=== PATIENT | male | born 1955 | race Caucasian/White ===

== ENCOUNTER 2020-07-22 11:00 | Outpatient (RCR) | payer MEDICARE, BC, SELFPAY ==
--- NOTE | 2020-07-06 12:08 | HMH.OTOPEV ---
OT Inpatient Evaluation Rehab OT Outpatient Eval Start: 07/06/20 10:34 Freq: Status: Active Protocol: Document 07/06/20 10:37 GELYRACHEL (Rec: 07/06/20 11:09 VICTORIANO [id number]) Electronically Signed By Page Luu OT 07/06/20 10:37 Outpatient Therapy Subjective History Subjective History 65 year old male referred to OP OT skilled services after having R elbow pain for past year. Patient verbalize wearing lateral epicondyle brace for the past 6 days with no relief noted. Chief Complaint Pain Symptom Type Ache Symptoms Aggravated By Physical Activity,Lifting Prior Functional Limitations None Current Functional Limitations Reaching,Lifting,Recreation Activity Symptom Description Constant and Continuous Level of pain today (0-10) 5 Pain scale - at its best (0-10) 5 Pain scale - at its worst (0-10) 6 Shoulder/Elbow Eval Shoulder Objective Measurements Elbow Objective Measurements Elbow ROM Right full ROM elbow exam standard right Elbow Extension Active Range of Motion ( 0 degrees) Elbow Flexion Active Range of Motion ( 150 degrees) Elbow Pronation of Forearm Range of 90 Motion (degrees) Elbow Supination of Forearm Range of 90 Motion (degrees) Elbow MMT Elbow Flexion Strength Grade 3+ Fair+ Brachialis Strength Grade (Flexion) 3+ Fair+ Elbow Special Tests Resistive Tennis Elbow (Cozen's) Test Positive Right Medial Epicondylitis Test Positive Right OT Outpatient Assessment Impairments Problems/Impairments Palpation Tenderness,Impaired Strength,Subjective C/O Pain, Impaired Self Care/Self Management Prognosis Rehab Potential Good Clinical Impression Consistent with Diagnosis Yes Short Term Goals Number of Weeks 2 Increase Strength Yes: Improve R elbow strength 3+ to 4-/5 throughout Increase Endurance Yes: Increase endurance to 20 mins of exer prior to RB Decrease Subjective C/O Pain Yes Patient to be Ind w/ HEP Yes: AAROM Patient to be Ind w/ Advanced HEP Yes: Strengthening Mcfp Goals Number of Weeks 4 Increase Strength Yes: Increase R elbow strength 4 to 4+/5 Increase Endurance Yes: Increase endurance to 30 mins of exer prior to RB Decrease Subjective C/O Pain Yes: 01/09 a
== END 2020-07-22 11:05 | disposition home or self-care (01) ==
LOC: OT 11:00
PROVIDERS: PCP Internal Medicine Adolescent Medicine; Visit Provider Internal Medicine Adolescent Medicine
DX: M25.512 Pain in left shoulder (principal)
CPT/HCPCS: 97014; 97035; 97110; 97140; 97165; G0283

== ENCOUNTER → 2020-07-30 09:49 | Outpatient (CLI) | payer MEDICARE, BC, SELFPAY ==
--- NOTE | 2020-07-30 09:51 | MR_ITS ---
PROCEDURE: MR ELBOW RT WO CON CLINICAL INDICATION: RIGHT ELBOW PAIN RIGHT POSTERIOR ELBOW PAIN, PT STATES HE HAS GOLFERS ELBOW. SYMPTOMS X10 MONTHS. PT HAS BEEN IN THERAPY FOR ELBOW PAIN COMPARISON: No exams were available for comparison TECHNIQUE: Routine multiplanar multi echo sequences are performed without gadolinium enhancement. FINDINGS: There are no previous exams available for comparison. There are diffuse osteoarthritic changes of the elbow medially and laterally with decrease in joint space and osteophyte formation. There is a small elbow joint effusion. The there is a mild degree of motion artifact on the coronal images obscuring fine detail. The medial and lateral collateral ligaments appear intact although there is some loss of definition of the medial collateral ligament which may be due to a mild degree of motion. No definite tear.. The common extensor tendon has an unremarkable appearance. There is mild edema of the common flexor tendon suggesting mild medial epicondylitis. Subchondral cystic change involves the coronoid process anteriorly measuring approximately 10 mm. There is a small elbow joint effusion. There is cortical regularity involving the radial head consistent with subchondral cystic change. The triceps tendon appears intact. The annular ligament appears intact. The biceps tendon and brachialis tendon appear intact. IMPRESSION: Osteoarthritic changes of the elbow joint with small elbow joint effusion and subchondral cystic changes of the coracoid process and radial head with slight increased T2 signal of the common flexor tendon consistent with medial epicondylitis. Dictated by: Julian Nunez MD 08/03/2020 06:45 Julian Nunez MD in [facility] 08/03/2020 06:45
== END ==
PROVIDERS: PCP Internal Medicine Adolescent Medicine; Visit Provider Internal Medicine Adolescent Medicine
DX: M25.521 Pain in right elbow (principal); M77.11 Lateral epicondylitis, right elbow
CPT/HCPCS: 73221

== ENCOUNTER → 2020-09-03 08:30 | Outpatient (CLI) | payer MEDICARE, BC, SELFPAY ==
[2020-09-04 13:25] LABS: Covid-19 Nasal PCR Sendout Lex NOT DETECTED
== END ==
PROVIDERS: Visit Provider Physician Assistant
DX: Z03.818 Encounter for observation for suspected exposure to other biological agents ruled out (principal)
CPT/HCPCS: U0004

== ENCOUNTER 2020-10-21 13:00 | Outpatient (RCR) | payer MEDICARE, BC, SELFPAY | END 2020-10-21 13:05 | disposition home or self-care (01) | LOC: OT 13:00 | PROVIDERS: PCP Internal Medicine Adolescent Medicine; Visit Provider Orthopaedic Surgery | DX: M25.521 Pain in right elbow (principal) | CPT/HCPCS: 97014; 97035; 97110; 97140; 97165; G0283 ==

== ENCOUNTER → 2021-06-10 16:08 | Outpatient (CLI) | payer MEDICARE, BC, SELFPAY ==
[2021-06-10 17:09] LABS: Basophils % 0.6 % (0.1-2.0); Eosinophils # 0.1 K/mm3 (0.0-0.4); Eosinophils % 1.4 % (0.1-12.0); Hematocrit 50.1 % (42.0-52.0); Hemoglobin 16.2 g/dL (14.1-18.0); Lymphocytes # 1.4 K/mm3 (0.7-4.5); Lymphocytes % 19.7 % (10-50); Mean Corpuscular HGB Conc 32.4 g/dL (31.8-35.4); Mean Corpuscular Hemoglobin 29.7 pg (27.0-31.2); Mean Corpuscular Volume 91.9 fl (80-94); Mean Platelet Volume 9.2 fl (7.4-10.4); Monocytes # 0.3 K/mm3 (0.1-1.0); Monocytes % 4.8 % (1.7-9.3); Neutrophils # 5.2 K/mm3 (1.8-7.8); Neutrophils % 73.5 % (37.0-80.0); Platelet Count 201 K/mm3 (142-424); Red Blood Count 5.45 M/mm3 (4.60-6.20); Red Cell Distribution Width 13.8 % (11.5-17.5); White Blood Count 7.1 K/mm3 (4.8-10.8)
[2021-06-10 18:43] LABS: Chloride 108 mmol/L (98-107); Potassium 5.4 mmoL/L (3.5-5.1); Sodium 143 mmol/L (136-145)
[2021-06-10 18:46] LABS: Alanine Aminotransferase 36 U/L (12-78); Albumin Level 3.9 g/dl (3.5-5.0); Albumin/Globulin Ratio 1.3 (1.1-1.8); Alkaline Phosphatase 96 U/L (38-126); Anion Gap 13.4 mEq/L (5-15); Aspartate Amino Transferase 36 U/L (17-59); Bilirubin,Total 0.7 mg/dl (0.2-1.3); Blood Urea Nitrogen 14 mg/dl (9-20); Calcium 9.4 mg/dl (8.4-10.2); Carbon Dioxide 27 mmol/L (22.0-30.0); Chol/HDL Ratio 2.6 (1-3.5); Cholesterol 180 mg/dl (140-200); Estimated Glomerular Filt Rate 74 ml/min (>60); GFR (African American) 90 ML/MIN (>60); Globulin 2.9 g/dL (1.3-3.2); Glucose 101 mg/dl (74-100); HDL Cholesterol 70 mg/dl (40-60); Total Protein,Serum 6.8 g/dl (6.3-8.2); Triglycerides 122 mg/dl (30-150); VLDL Cholesterol 24 mg/dL (0-40)
[2021-06-10 18:58] LABS: Direct LDL Cholesterol 78.44 mg/dL (100-129)
[2021-06-10 18:59] LABS: Troponin I 0.08 ng/ml (0.00-0.034)
== END ==
PROVIDERS: Visit Provider Internal Medicine Adolescent Medicine
DX: I20.9 Angina pectoris, unspecified (principal)
CPT/HCPCS: 36415; 80053; 80061; 84484; 85025

== ENCOUNTER → 2021-06-11 06:58 | Outpatient (CLI) | payer MEDICARE, BC, SELFPAY ==
[2021-06-11 07:43] LABS: Troponin I 0.06 ng/ml (0.00-0.034)
== END ==
PROVIDERS: Visit Provider Internal Medicine Adolescent Medicine
DX: I20.9 Angina pectoris, unspecified (principal)
CPT/HCPCS: 36415; 84484

== ENCOUNTER → 2021-06-14 07:14 | Outpatient (CLI) | payer MEDICARE, BC, SELFPAY ==
--- NOTE | 2021-06-14 | CA_ITS ---
APPROVED REPORT Exam: Exercise Treadmill Technologist: Kim Ken, Ht: 5 ft 6 in Wt: 205 lbs BSA: 2.02 m2 HR: 62 bpm BP: 174/88 mmHg Medical History Medications: Omeprazole,,,,, Aspirin,,,,, Nitrostat,,,,, Atorvastatin,,,,, Celecoxib,,,,, Stress Test Details Test: Fred HR Resting HR: 69 bpm Max Heart Rate (APMHR): 152.960406 bpm Max HR Achieved: 102 bpm Target HR (85% APMHR): 129.992096 bpm % of APMHR: 67.11 Recovery HR: 62 bpm BP Resting BP: 178/90 mmHg Max BP: 195/82 mmHg Recovery BP: 181.0/85.0 mmHg ECG Resting ECG: NSR, Early repolarization changes inferiorly Clinical Reason for Termination: Chest pain Exercise duration: 05:15 min Highest Stage Achieved: Exercise capacity: 7.0 METs Stress ECG Conclusion (+) SS CP 710 5:15 Min 7.0 METs Pain resolved 3:34 Max HR: 102 Test Stopped due to: CP, (+) EKG changes Symptoms: SS chest pain. Arrhythmias/Ectopy: None. ST-T Changes: (+)[address] ST Segment depression Inf/Laterally. Resolved in recovery. Conclusion: Abnormal. Stopped due to CP/SOA. Test Summary REST . . . . . . . Sitting REST 06:23 0.0 1.2 69 . 178/ 90 . . Stage 1 01:00 10.0 1.7 86 . . . . Stage 1 02:00 10.0 1.7 93 . . . . Stage 1 03:00 10.0 1.7 98 . 158/ 90 . . Stage 2 01:00 12.0 2.5 101 . . . . Stage 2 02:00 12.0 2.5 93 . . . . Stage 2 02:15 12.0 2.5 91 . . . Stop exercise at 05:15 RECOVERY 01:00 0.0 0.0 78 . . . . RECOVERY 02:00 0.0 0.0 58 . . . . RECOVERY 03:00 0.0 0.0 52 . 181/ 85 . . RECOVERY 04:00 0.0 0.0 67 . 181/ 85 . . RECOVERY 05:00 0.0 0.0 64 . 181/ 85 . . RECOVERY 06:00 0.0 0.0 66 . 181/ 85 . . RECOVERY 07:00 0.0 0.0 69 . 181/ 85 . . RECOVERY 08:00 0.0 0.0 72 . 195/ 82 . . RECOVERY 08:55 0.0 0.0 68 . 195/ 98 . . Electronically signed by : Ken Grande MD 06/14/2021 17:22:41
--- NOTE | 2021-06-14 07:18 | NM_ITS ---
APPROVED REPORT Exam: Nuclear Stress Test Indication: High cholesterol, Family history, SOB Patient Location: Outpatient Stress Tech: Kim Ken NM Tech:Magda Richardson, ARRT, RT (R)(N) Ht: 5 ft 6 in Wt: 200 lbs HR: 62 bpm BP: 174/88 mmHg BSA: 2.00 m2 BMI: 32.2 History: High cholesterol, Family history, SOB Procedure: Patient exercised on Fred protocol 5:15 minutes and sec, resting heart rate 62 bpm, resting blood pressure 174/88 mmHg, with exercise maximum heart rate achived was 102 bpm which is Less than 85 % of the maximum predicted heart rate and blood pressure was 158/90 mmHg. Test was stopped due to Chest pain and + EKG changes and chest pain. Patient has Adequate exercise capacity, achieved 7.0 METs of workload on treadmill, the blood pressure response to exercise was Abnormal. Electrocardiogram Resting electrocardiogram showed sinus rhythm, with exercise there is [address] segment depression noted from the baseline EKG. The EKG portion of the exercise Myoview is positive for ischemia. Cardiac Stress and Resting SPECT Images: Cardiac Stress and Resting SPECT images were obtained using technetium 99m Myoview 29.8 mCi stress and 10.45 mCi at rest. Gated SPECT for analysis of segmental wall motion and calculation of the ejection fraction also done. Prone images were also obtained. Cardiac stress and resting SPECT images show decreased tracer activity in the anterior, anterior apical, apex and anteroseptal wall which improves on the resting images suggestive of reversible ischemia, computer derived ejection fraction is 65% with mild anterior wall hypokinesis. Right ventricle is normal size and contractility. Conclusion: 1. The EKG portion of the exercise Myoview is positive for ischemia. Patient has adequate exercise capacity achieved 7 mets of workload on treadmill, the blood pressure response to exercise was abnormal, patient complained of exercise-induced chest discomfort which was relieved with rest. 2. Scintigraphic evidence of a large area of reversible ischemia involving the anterior, apex, anterior apical and anteroseptal wall computer derived ejection fraction is 65% with mild anterior wall hypokinesis, right ventricle is normal size and contractility. 3. Abnormal high risk exercise myocardial perfusion imaging. Electronically signed by : Ken Grande MD 06/14/2021 18:20:27
--- NOTE | 2021-06-14 09:43 | HMH.ITSHM ---
Current Home Medications as stated by this patient Xander Wood or surgical sales representative. []OMEPRAZOLE ATORVASTATIN
== END ==
PROVIDERS: PCP Internal Medicine Adolescent Medicine; Visit Provider Internal Medicine Adolescent Medicine
DX: I20.8 Other forms of angina pectoris (principal)
CPT/HCPCS: 78452; 93017; A9502

== ENCOUNTER → 2021-07-07 11:21 | Outpatient (CLI) | payer MEDICARE, BC, SELFPAY ==
[2021-07-07 11:43] LABS: Basophils % 0.6 % (0.1-2.0); Eosinophils # 0.2 K/mm3 (0.0-0.4); Eosinophils % 2.8 % (0.1-12.0); Hematocrit 51.5 % (42.0-52.0); Hemoglobin 16.6 g/dL (14.1-18.0); Lymphocytes # 1.3 K/mm3 (0.7-4.5); Lymphocytes % 22.2 % (10-50); Mean Corpuscular HGB Conc 32.3 g/dL (31.8-35.4); Mean Corpuscular Hemoglobin 29.8 pg (27.0-31.2); Mean Corpuscular Volume 92.3 fl (80-94); Mean Platelet Volume 8.6 fl (7.4-10.4); Monocytes # 0.3 K/mm3 (0.1-1.0); Monocytes % 5.3 % (1.7-9.3); Neutrophils % 69.1 % (37.0-80.0); Platelet Count 234 K/mm3 (142-424); Red Blood Count 5.58 M/mm3 (4.60-6.20); Red Cell Distribution Width 13.7 % (11.5-17.5); White Blood Count 5.8 K/mm3 (4.8-10.8)
[2021-07-07 12:51] LABS: Chloride 110 mmol/L (98-107); Potassium 5.1 mmoL/L (3.5-5.1); Sodium 144 mmol/L (136-145)
[2021-07-07 12:54] LABS: Anion Gap 13.1 mEq/L (5-15); Blood Urea Nitrogen 19 mg/dl (9-20); Carbon Dioxide 26 mmol/L (22.0-30.0); Estimated Glomerular Filt Rate 96 ml/min (>60); GFR (African American) 116 ML/MIN (>60)
[2021-07-07 12:55] LABS: Calcium 9.5 mg/dl (8.4-10.2); Glucose 122 mg/dl (74-100)
== END ==
PROVIDERS: Visit Provider Internal Medicine Adolescent Medicine
DX: I25.10 Atherosclerotic heart disease of native coronary artery without angina pectoris (principal)
CPT/HCPCS: 36415; 80048; 85025

== ENCOUNTER → 2021-09-22 15:51 | Outpatient (CLI) | payer MEDICARE, BC, SELFPAY ==
--- NOTE | 2021-09-22 15:55 | XR_ITS ---
PROCEDURE INFORMATION: Exam: XR Right Knee Exam date and time: 09/22/2021 3:55 PM Age: 66 years old Clinical indication: Injury or trauma; Fall; Blunt trauma; Patient HX: Patient fell 9 days ago, right knee pain. ; Additional info: RT leg pain TECHNIQUE: Imaging protocol: XR Right knee. Views: 3 views. COMPARISON: No relevant prior studies available. FINDINGS: Bones/joints: Normal. Soft tissues: Normal. IMPRESSION: No acute findings.
--- NOTE | 2021-09-22 15:55 | XR_ITS ---
PROCEDURE INFORMATION: Exam: XR Right Ankle Exam date and time: 09/22/2021 3:55 PM Age: 66 years old Clinical indication: Injury or trauma; Fall; Blunt trauma; Patient HX: Patient fell 9 days ago, right knee pain. ; Additional info: Acute RT ankle pain TECHNIQUE: Imaging protocol: XR Right ankle. Views: 3 or more views. COMPARISON: No relevant prior studies available. FINDINGS: Bones/joints: Moderate soft tissue swelling of the lateral malleolus without acute osseous abnormality. Mild enthesopathy of the calcaneus at the plantar fascia and Achilles tendon insertion. Soft tissues: See Bones/joints finding. IMPRESSION: Moderate soft tissue swelling of the lateral malleolus without acute osseous abnormality.
--- NOTE | 2021-09-22 15:55 | XR_ITS ---
PROCEDURE INFORMATION: Exam: XR Right Tibia and Fibula Exam date and time: 09/22/2021 3:55 PM Age: 66 years old Clinical indication: Injury or trauma; Fall; Blunt trauma; Patient HX: Patient fell 9 days ago, right lower leg pain. ; Additional info: RT leg pain TECHNIQUE: Imaging protocol: XR Right tibia and fibula. Views: 2 views. COMPARISON: No relevant prior studies available. FINDINGS: Bones/joints: Moderate soft tissue swelling of the lateral malleolus without acute osseous abnormality. Soft tissues: See Bones/joints finding. IMPRESSION: Moderate soft tissue swelling of the lateral malleolus without acute osseous abnormality.
== END ==
PROVIDERS: PCP Internal Medicine Adolescent Medicine; Visit Provider Internal Medicine Adolescent Medicine
DX: M79.604 Pain in right leg (principal); M25.571 Pain in right ankle and joints of right foot
CPT/HCPCS: 73562; 73590; 73610

== ENCOUNTER → 2021-12-13 14:56 | Outpatient (CLI) | payer MEDICARE, BC, SELFPAY ==
--- NOTE | 2021-12-13 15:33 | XR_ITS ---
FINAL REPORT CLINICAL HISTORY: RT ANKLE PAIN, patient twisted right ankle in October this year and had x-rays that were normal he stated. Persistent worsening right ankle pain. COMPARISON: September 22, 2021 FINDINGS: RIGHT ANKLE: Three views of the right ankle were obtained. There is no acute fracture or dislocation. There are mild degenerative changes. There is a chronic calcification inferior to the medial malleolus. There are small calcaneal spurs. There is soft tissue swelling. IMPRESSION: Swelling with no acute bony abnormality. Reviewed, Interpreted and Dictated by Miquel Sewell III, MD Transcribed by Cachorro Hu Authenticated by Miquel Sewell III, MD on 12/13/2021 04:55:[address] [facility]
== END ==
PROVIDERS: PCP Internal Medicine Adolescent Medicine; Visit Provider Internal Medicine Adolescent Medicine
DX: M25.571 Pain in right ankle and joints of right foot (principal)
CPT/HCPCS: 73610

== ENCOUNTER → 2022-03-22 13:20 | Outpatient (POV) | payer MEDICARE, BC, SELFPAY | PROVIDERS: Visit Provider Dermatology | DX: Z00.00 Encounter for general adult medical examination without abnormal findings (principal) ==

== ENCOUNTER 2024-04-19 09:22 | Day surgery (SDC) | payer MEDICARE, BC, SELFPAY ==
[2024-04-17 15:47] VITALS: BMI 30.8
[2024-04-19] VITALS (7 sets, daily range): BP systolic 109–127; BP diastolic 61–78; PULSE 55–63; RESP 16–18; TEMP 36.2–36.7; O2SAT 92–98
[2024-04-19] MEDS: LACTATED RINGERS 1000ML 1,000 ML 25 ML IV (09:44)
--- NOTE | 2024-04-19 11:33 | EXP.GEN.HP ---
HPI HPI HPI: Presents for EGD and colonoscopy. He is a 68-year-old male from [facility] referred by Helder Nichole MD for EGD and colonoscopy. He had a colonoscopy in [address] Will Connors and had a couple small polyps removed. Dr. Andino had performed upper endoscopy on 06/16/2016 at which time the GE junction was encountered at 39 cm. There was mild gastritis of the antrum. Biopsies were obtained of the distal esophagus just proximal to the GE junction. He had an upper endoscopy by Dr. Garcia on 08/14/2017 for apparent history of Jones's esophagus. There was some linear gastritis. There was no evidence of Jones's esophagus endoscopically by appearance. It was felt that the patient may have had intestinal metaplasia of the gastric cardia but it was felt there was no indication to perform frequent surveillance/screening upper endoscopy. He had undergone colonoscopy with Dr. Anderson Garcia on 11/30/2018 which revealed a firm prostate and a couple of diminutive polyps. Follow-up was recommended 5 to 10 years pending pathology. He had a hyperplastic polyp and a tubular adenoma. Patient has a history in his father of apparent esophageal or gastric cancer. . [facility] Disclaimer: The information contained in this section may have been updated after the patient was seen, as this information can be updated by other users. Medical History (Updated 04/19/24 @ 09:47 by Fred Velarde RN) CAD (coronary artery disease) GERD (gastroesophageal reflux disease) HLD (hyperlipidemia) Surgical History (Updated 04/19/24 @ 09:47 by Fred Velarde RN) History of coronary artery stent placement History of elbow surgery History of esophagogastroduodenoscopy (EGD) History of colonoscopy Family History (Updated 04/19/24 @ 09:48 by Fred Velarde RN) Family history of heart disease Family history of cancer Social History (Updated 04/19/24 @ 11:38 by Nohemi Guerrero CRNA) Smoking Status: Never smoker alcohol intake: current substance use type: denies use current occupational status: other Travel in the last 8 weeks: None caffeine: Yes Meds Home Medications and Allergies Home Medications Medication Instructions Recorded Confirmed Type atorvastatin 80 mg tablet (Lipitor) 80 mg PO DAILY Cholesterol 11/26/18 04/17/24 History omeprazole 20 mg capsule,delayed 20 mg PO DAILY Reflux/Acid reflux 11/26/18 04/17/24 History release aspirin 81 mg tablet,delayed 81 mg PO DAILY 12/26/23 04/17/24 History release (Adult Aspirin Regimen) New Prescriptions to Start Prescriptions: Allergies Allergy/AdvReac Type Severity Reaction Status Date / Time No Known Drug Allergies Allergy Mild Verified 04/17/24 15:45 [NKDA] Exam Data for Last 24 hours Vital signs and Labs for Last 24 Hours: Temp Pulse Resp BP Pulse Ox O2 Del Method 97.2 F L 56 L 18 127/61 98 Room Air 04/19/24 09:48 04/19/24 09:48 04/19/24 09:48 04/19/24 09:48 04/19/24 09:48 04/19/24 09:48 I & O for Last 24 hours: Intake & Output 04/16/24 04/17/24 04/18/24 04/19/24 11:59 11:59 11:59 11:59 Weight 197 lb Constitutional Constitutional: no acute distress *Routine HEENT Exam Head: Present normocephalic Eye: Present EOMI and PERRL ENT: Present mucous membranes moist *Routine Neck Exam Neck: Present supple; Absent lymphadenopathy *Routine Respiratory Exam Respiratory: Present CTA bilaterally *Routine Cardiovascular Exam Cardiovascular: Present RRR *Routine Abdominal Exam Abdominal: Present soft and normoactive bowel sounds; Absent tenderness *Routine Rectal Exam Rectal:: deferred *Routine Genitalia Exam Genitalia:: deferred *Routine Extremities Exam Extremities: Absent cyanosis, clubbing or edema *Routine Skin Exam Skin: Present warm; Absent rash *Routine Neurological Exam Neurological: Present alert and oriented X3 Assessment and Plan *Assessment and plan (1) Tubular adenoma of colon: Status: Acute Category: Medical Code(s): D12.6 - Benign neoplasm of colon, unspecified Plan Plan to proceed with upper endoscopy due to history of intestinal metaplasia and colonoscopy due to history of polyps. .
--- NOTE | 2024-04-19 11:36 | P.PNANES_ITS ---
[facility] Disclaimer: The information contained in this section may have been updated after the patient was seen, as this information can be updated by other users. Medical History (Updated 04/19/24 @ 09:47 by Fred Velarde RN) CAD (coronary artery disease) GERD (gastroesophageal reflux disease) HLD (hyperlipidemia) Surgical History (Updated 04/19/24 @ 09:47 by Fred Velarde RN) History of coronary artery stent placement History of elbow surgery History of esophagogastroduodenoscopy (EGD) History of colonoscopy Family History (Updated 04/19/24 @ 09:48 by Fred Velarde RN) Other Family history of cancer Family history of heart disease Social History Smoking Status: Never smoker alcohol intake: current substance use type: denies use current occupational status: other Travel in the last 8 weeks: None caffeine: Yes [facility] Anesthesia Checklist Patient Identification Patient Identification: Arm Band, Family and Verbal (Name & ) Structural Data Admitted From: Home Planned Operative Procedure/s: EGD/Colonoscopy Consent for Planned Operative Procedure(s) Verified: Yes Verified Documents: Surgical Consent and History and Physical NPO Status Verified Time NPO: 20:00 Chart Verification Results Verified: CBC, BMP and ECG Additional verifications Patient : No Anesthesia Reactions: No Cardiovascular Assessment Heart Sounds: S1 & S2 Pulse Rhythm: Irregular Peripheral Edema: No Airway Assessment Mallampati Score:: Class II C-Spine Mobility Assessed: Yes (FROM) TMJ Mobility Assessed: Yes Dentition: Good Dentition (Nothing loose per pt.) Neurological Assessment Level of Consciousness: Awake, Alert, Appropriate and Follows Commands Hx Seizures: No Numbness or tingling in extremities: No Anesthesia Plan Anesthesia Risk discussed: Yes Anesthesia Plan: Verified ASA Class: II Anesthesia Type: MAC
--- NOTE | 2024-04-19 12:19 | P.PCN_ITS ---
Procedure: Date: 04/19/24 Patient Date of :: 1955 Procedure Performed:: Esophagogastroduodenoscopy with Biopsies Total Colonoscopy to terminal ileum . Indications:: Presents for EGD and colonoscopy. He is a 68-year-old male from [facility] referred by Helder Nichole MD for EGD and colonoscopy. He had a colonoscopy in [address] Will Connors and had a couple small polyps removed. Dr. Andino had pe rformed upper endoscopy on 06/16/2016 at which time the GE junction was encountered at 39 cm. There was mild gastritis of the antrum. Biopsies were obtained of the distal esophagus just proximal to the GE junction. He had an upper endoscopy by Dr. Garcia on 08/14/2017 for apparent history of Jonse's esophagus. There was some linear gastritis. There was no evidence of Jones's esophagus endoscopically by appearance. It was felt that the patient may have had intestinal metaplasia of the gastric cardia. He had undergone colonoscopy with Dr. Anderson Garcia on 11/30/2018 which revealed a firm prostate and a couple of diminutive polyps. Follow-up was recommended 5 to 10 years pending pathology. He had a hyperplastic polyp and a tubular adenoma. Patient has a history in his father of apparent esophageal cancer. . Performing Provider:: Miquel Rico MD Referring Provider:: Helder Nichole MD Sedation:: MAC sedation Procedure:: Patient history was obtained and appropriate physical examination was performed. Patient's medications and allergies were reviewed. Informed consent was obtained after explaining the benefits, alternatives, and risks of the procedure including, but not limited to, bleeding, perforation, missed lesions, and adverse reaction to anesthesia medications. Patient was transported to endoscopy procedure room. Patient was connected to monitoring devices. Throughout the procedure the patient's blood pressure, pulse, and oxygen saturations were monitored continuously. Patient identification and planned procedure were verified by the staff. Patient was positioned in lateral decubitus position. Attention was first turned to upper endoscopy. The endoscope was inserted via the oropharynx. Esophagus was cannulated. There was some tortuosity to the esophagus consistent with mild esophageal dysmotility. GE junction was encountered at 39cm. There was possible focal Jones's esophagus. Stomach was cannulated and insuflated. Retroflexion revealed a 2-3 cm sliding hiatal hernia. THere was diffuse nonerosive gastropathy/gastritis. Biopsies were obtained. Pylorus was traversed. Duodenum was normal. Several biopsies were obtained at the [facility]. A couple of random distal esophageal biopsies were obtained. Next attention was turned to colonoscopy. Digital anorectal exam was performed. Variable stiffness Olympus colonoscope was inserted and advanced under direct visualization to the cecum. Adequacy of the colonic preparation was noted. Preparation was good. The colonoscope was advanced a short distance into the terminal ileum. The colonoscope was then slowly withdrawn while carefully examining the color, texture, anatomy, and integrity of the mucosoa circumferentially. Within the rectum retroflexion was performed. Colonoscope was then withdrawn. . Findings:: Esophageal Dysmotility GE junction at 39cm Small 2-3cm sliding hiatal hernia Diffuse gastropathy/gastritis Normal colonoscopy . Recommendations:: Repeat EGD pending pathology Repeat colonoscopy 7-10 years given history of polyps . Complications:: None immediate Estimated blood obtained (mL): 1 Colonoscopy Component Colonoscopy Component Was a colonoscopy performed during today's procedure?: Yes Recommended follow up colonoscopy of at least 10 years?: No If no, follow up colonoscopy recommended in ___ years?: See above Reason for not recommending >/= 10 yr follow-up interval?: See above
--- NOTE | 2024-04-19 12:22 | P.PNANES_ITS ---
[facility] Anesthesia Record Part I Anesthesia Record I Intake, IV Amount: 700 Hydration: Adequate Estimated blood loss (mL): 1 Urine output (mL): 0 Blood Products used (#): none Blood Pressure: 124/67 SaO2: 92 Pulse Rate: 63 Airway Patency: Patent Respiratory Rate: 16 Temperature: 98.0 F Patient is:: Drowsy and Stable Stable to PACU at:: 12:28
== END 2024-04-19 12:54 | disposition home or self-care (01) ==
PROVIDERS: Surgery; PCP Internal Medicine Adolescent Medicine; Visit Provider Internal Medicine Adolescent Medicine
PROC: 0DJ08ZZ Inspection of Upper Intestinal Tract, Via Natural or Artificial Opening Endoscopic (ICD-10-PCS; CPT 43235; principal; 2024-04-19 10:30)
DX: D12.6 Benign neoplasm of colon, unspecified (principal); Z86.010 Personal history of colon polyps; Z80.0 Family history of malignant neoplasm of digestive organs; K44.9 Diaphragmatic hernia without obstruction or gangrene; K31.9 Disease of stomach and duodenum, unspecified; K29.70 Gastritis, unspecified, without bleeding; Z12.11 Encounter for screening for malignant neoplasm of colon
CPT/HCPCS: 43239; G0105; 88305; J7120